=== PATIENT | male | born 1975 | race Two or more races ===

== ENCOUNTER 2021-09-01 23:01 | Emergency (ER) | payer MEDICAID, OTHER ==
[~2021-09-01] VITALS: Ht 170.2 cm; Wt 77.1 kg
--- NOTE | 2021-09-01 23:09 | NUR ---
PT BIBRA 39 C/O ASTHMA ATTACK. UPON TRIAGE SPO2 92% ON R/A . [facility] ADMINISTERED ALBUTERAL. [facility] RFA #[id number] S/L
[2021-09-01] MEDS ORDERED: predniSONE 20 MG TABLET ONE (23:14)
[2021-09-01] MEDS ORDERED: IPRATROPIUM NEB FS 0.5 MG/2.5 ML AMPUL.NEB ONE (23:26)
[2021-09-01] MEDS ORDERED: ALBUTEROL FS 2.5 MG/3 ML VIAL.NEB ONE (23:26)
[2021-09-01] MEDS ORDERED: IPRATROPIUM NEB FS 0.5 MG/2.5 ML AMPUL.NEB NEB ONE (23:30)
[2021-09-01] MEDS ORDERED: ALBUTEROL FS 2.5 MG/3 ML VIAL.NEB NEB ONE (23:30)
[2021-09-01] MEDS ORDERED: predniSONE 20 MG TABLET PO ONE (23:30)
--- NOTE | 2021-09-02 00:23 | NUR ---
ROPE TIER AT PT'S BEDSIDE
[2021-09-02] MEDS ORDERED: PRED20TA GT (01:15)
[2021-09-02 01:41] VITALS: BP 114/67
--- NOTE | 2021-09-02 01:41 | NUR ---
Patient discharged to home in stable condition. Written and verbal after care instructions given. Patient verbalizes understanding of instruction.
== END 2021-09-02 01:42 | disposition home or self-care (01) ==
LOC: EDBD 23:03 → ER 23:03
DX: J45.901 Unspecified asthma with (acute) exacerbation (principal)
CPT/HCPCS: 71046; 94644; 99285; J7512